=== PATIENT | female | born 1980 | race Caucasian/White ===

== ENCOUNTER 2021-03-18 16:09 | Emergency (ER) | payer OTHER ==
[~2021-03-18] VITALS: Ht 165.1 cm; Wt 117.9 kg
[~2021-03-18 16:09] MED LIST: NORCO 5-325 TA1 EACH PO; OMEPRAZOLE40 MG PO; TRI-PREVIFEM1 EACH PO
[2021-03-18 16:11] VITALS: BP 156/105
[2021-03-18] MEDS ORDERED: ZANAFLEX4 MG PO (18:09)
== END 2021-03-18 18:04 | disposition home or self-care (01) ==
LOC: ER 16:09
DX: S16.1XXA Strain of muscle, fascia and tendon at neck level, initial encounter (principal); S09.90XA Unspecified injury of head, initial encounter; Z91.02 Food additives allergy status; V89.2XXA Person injured in unspecified motor-vehicle accident, traffic, initial encounter; Y93.89 Activity, other specified; Y92.89 Other specified places as the place of occurrence of the external cause; Y99.8 Other external cause status